=== PATIENT | female | born 1965 | race Caucasian/White ===

== ENCOUNTER 2023-04-14 12:56 | Emergency (ER) | payer OTHER ==
[~2023-04-14] VITALS: Ht 167.6 cm; Wt 74.8 kg
[~2023-04-14 12:56] MED LIST: BUSP5 PO; CLON1 PO; GLIP2.5ER PO; HYDACE5 PO; IBUP800 PO; INSULANPEN; LOVA20 PO; METF500 PO; VENL25 PO
[2023-04-14] MEDS ORDERED: HYDROXYZ HCL 25MG TA (13:27)
[2023-04-14] MEDS ORDERED: BASAGLAR K100 UNIT/8 (13:27)
[2023-04-14] MEDS ORDERED: TRAZ50 PO (13:28)
[2023-04-14] MEDS ORDERED: JARDIANCE25 MG PO (13:29)
[2023-04-14 13:42] LABS: BASOPHILS ABSOLUTE AUTO 0.04 K/mm3 (0.00-0.23); BASOPHILS PERCENT AUTO 1 % (0-2); EOSINOPHILS ABSOLUTE AUTO 0.08 K/mm3 (0.00-0.68); EOSINOPHILS PERCENT AUTO 1 % (0-6); Hematocrit 26.9 % (33.0-51.0); Hemoglobin 8.9 g/dL (11.5-16.0); IMMATURE GRAN ABSOLUTE AUTO 0.02 K/mm3 (0.00-0.10); IMMATURE GRAN PERCENT AUTO 0 % (0-1); LYMPHOCYTES ABSOLUTE AUTO 1.69 K/mm3 (0.84-5.20); LYMPHOCYTES PERCENT AUTO 22 % (21-46); MONOCYTES ABSOLUTE AUTO 0.62 K/mm3 (0.16-1.47); MONOCYTES PERCENT AUTO 8 % (4-13); Mean Corpuscular HGB 29.6 pg (26.0-34.0); Mean Corpuscular HGB Conc 33.1 g/dL (31.5-36.5); Mean Corpuscular Volume 89 fL (80-100); Mean Platelet Volume 10.1 fL (9.1-12.4); NEUTROPHILS ABSOLUTE AUTO 5.41 K/mm3 (1.96-9.15); NEUTROPHILS PERCENT AUTO 69 % (41-73); Platelet Count 137 K/mm3 (150-400); RDW Coefficient Variation 14.6 % (11.7-14.2); RDW Standard Deviation 46.8 fL (35.1-46.3); Red Blood Cell Count 3.01 M/mm3 (3.80-5.20); White Blood Cell Count 7.86 K/mm3 (4.00-11.30)
[2023-04-14 14:07] LABS: Albumin, Blood 1.9 g/dL (3.4-5.0); Albumin/Globulin Ratio 0.5 (0.8-1.8); Bilirubin, Total 0.7 mg/dL (0.1-1.0); Bun/Creatinine Ratio 56.7 (12.0-20.0); Calcium, Blood 7.8 mg/dL (8.5-10.1); Creatinine, Blood 0.55 mg/dL (0.40-1.00); Globulin, Blood 4.2 g/dL (2.2-4.0); Potassium, Blood 3.8 mmol/L (3.5-5.5); Total Protein, Blood 6.1 g/dL (6.4-8.2)
[2023-04-14 15:22] LABS: International Normalized Ratio 1.06; Prothrombin Time Results 11.1 Sec (9.7-11.5)
[2023-04-14 15:32] LABS: Source, Urine Clean Catch
[2023-04-14 15:38] LABS: Appearance, Urine Hazy (Clear); Bilirubin, Urine Neg (Neg); Blood, Urine 5+ (Neg); Color, Urine Yellow (P-Yellow); Glucose Qualitative, Urine 4+ (Neg); Ketones, Urine Neg (Neg); Leukocyte Esterase, Urine 3+ (Neg); Nitrite, Urine Pos (Neg); Protein, Urine 2+ (Neg); Urobilinogen, Urine NORM (Normal); pH, Urine 6.5 (5.0-8.0)
[2023-04-14 15:51] LABS: White Blood Cells, Urine TNTC /hpf (0-5)
[2023-04-14 15:52] LABS: Bacteria Many /hpf; Red Blood Cells, Urine 25-50 /hpf (0-2); Squamous Epithelial Cells Rare /hpf (Few)
[2023-04-14] MEDS ORDERED: EFFEXOR XR150 MG PO (19:07)
[2023-04-14 20:20] VITALS: BP 146/88
== END 2023-04-14 20:00 | disposition short-term general hospital (02) ==
LOC: ER 12:56
PROVIDERS: Emergency Medicine; Student in an Organized Health Care Education/Training Program
DX: K92.2 Gastrointestinal hemorrhage, unspecified (principal); D62 Acute posthemorrhagic anemia; E11.9 Type 2 diabetes mellitus without complications; E78.00 Pure hypercholesterolemia, unspecified
CPT/HCPCS: 74174; 80053; 81001; 82947; 85025; 85610; 86850; 86900; 86901; C9113; J0696; J2354; J2405; J7050; Q9967

== ENCOUNTER 2023-07-12 07:01 | Observation (INO) | payer OTHER ==
[~2023-07-12] VITALS: Ht 175.3 cm; Wt 76.8 kg
[~2023-07-12 07:01] MED LIST changes: +AMLODIPINE BESY10 MG PO; +BASAGLAR K100 UNIT/8; +EFFEXOR XR150 MG PO; +HYDROXYZ HCL 25MG TA; +JARDIANCE25 MG PO; +PROP10 PO; +TRAZ50 PO
[2023-07-12 07:15] LABS: BASOPHILS ABSOLUTE AUTO 0.05 K/mm3 (0.00-0.23); BASOPHILS PERCENT AUTO 1 % (0-2); EOSINOPHILS ABSOLUTE AUTO 0.17 K/mm3 (0.00-0.68); EOSINOPHILS PERCENT AUTO 2 % (0-6); Hematocrit 30.8 % (33.0-51.0); Hemoglobin 10.3 g/dL (11.5-16.0); IMMATURE GRAN ABSOLUTE AUTO 0.02 K/mm3 (0.00-0.10); IMMATURE GRAN PERCENT AUTO 0 % (0-1); LYMPHOCYTES ABSOLUTE AUTO 2.92 K/mm3 (0.84-5.20); LYMPHOCYTES PERCENT AUTO 34 % (21-46); MONOCYTES PERCENT AUTO 8 % (4-13); Mean Corpuscular HGB 27.1 pg (26.0-34.0); Mean Corpuscular HGB Conc 33.4 g/dL (31.5-36.5); Mean Corpuscular Volume 81 fL (80-100); Mean Platelet Volume 10.2 fL (9.1-12.4); NEUTROPHILS ABSOLUTE AUTO 4.62 K/mm3 (1.96-9.15); NEUTROPHILS PERCENT AUTO 55 % (41-73); Platelet Count 197 K/mm3 (150-400); RDW Coefficient Variation 15.9 % (11.7-14.2); RDW Standard Deviation 46.9 fL (35.1-46.3); White Blood Cell Count 8.48 K/mm3 (4.00-11.30)
[2023-07-12 07:18] LABS: Source, Urine Fem Cath
[2023-07-12 07:22] LABS: Appearance, Urine Hazy (Clear); Bilirubin, Urine Neg (Neg); Blood, Urine 2+ (Neg); Color, Urine Yellow (P-Yellow); Glucose Qualitative, Urine Neg (Neg); Ketones, Urine Neg (Neg); Leukocyte Esterase, Urine 2+ (Neg); Nitrite, Urine Neg (Neg); Protein, Urine 1+ (Neg); Specific Gravity, Urine 1.015 (1.003-1.022); Urobilinogen, Urine NORM (Normal)
[2023-07-12 07:33] LABS: Bacteria Many /hpf; Renal Epithelial Rare /hpf (0-Rare); Squamous Epithelial Cells Not Seen /hpf (Few)
[2023-07-12 07:39] LABS: Albumin, Blood 2.8 g/dL (3.4-5.0); Albumin/Globulin Ratio 0.6 (0.8-1.8); Bilirubin, Total 0.5 mg/dL (0.1-1.0); Bun/Creatinine Ratio 34.8 (12.0-20.0); Calcium, Blood 9.1 mg/dL (8.5-10.1); Creatinine, Blood 0.78 mg/dL (0.40-1.00); Globulin, Blood 4.4 g/dL (2.2-4.0); Potassium, Blood 4.3 mmol/L (3.5-5.5); Total Protein, Blood 7.2 g/dL (6.4-8.2)
[2023-07-12] MEDS ORDERED: CEPH500 PO (09:22)
[2023-07-12] MEDS ORDERED: VENL75ER PO (10:06)
[2023-07-12] MEDS ORDERED: CONSTULOSE10 GM/155 PO (10:06)
[2023-07-12] MEDS ORDERED: AMLO10 PO (10:07)
[2023-07-12] MEDS ORDERED: OMEP20ER PO (10:07)
[2023-07-12] MEDS ORDERED: PROP10 PO (10:07)
[2023-07-12] MEDS ORDERED: BASAGLAR K100 UNIT/1 SC (10:08)
[2023-07-12] MEDS ORDERED: HUMALOG100 UNIT/1 SC (10:09)
[2023-07-12] MEDS ORDERED: FURO40 PO (13:45)
[2023-07-12] MEDS ORDERED: ALDACTONE100 M1 PO (13:46)
[2023-07-12] MEDS ORDERED: POTCHL20ER PO (13:46)
[2023-07-12 14:16] VITALS: BP 151/74
[2023-07-12 15:00] VITALS: BP 160/87
--- NOTE | 2023-07-12 15:38 | NUR ---
PATIENT ADMIT TO MEDICAL 345. UP SBA TO BED. ABLE TO TELL ME NAME AND . UNABLE TO TELL ME WHERE SHE IS AND WHY. UNABLE TO GET ANY MEDICAL HISTORY. [facility]IENT FROM [facility]. DENIES NUMBNESS/TINGLING. BILATERAL NEWSPAPER EDITOR MANAGING STRENGTH. BED ALARM IN PLACE. LUNGS SOUNDING CLEAR THROUGHOUT. SATING ABOVE 95% ON ROOM AIR. DENIES SOB/COUGH. NO TELE. BP ELEVATED SBP 150-160'S. HR WNL. DENIES CHEST PAIN/PRESSURE/PALPITATIONS. PPP. NO EDEMA NOTED. DENIES ABDOMINAL PAIN/NAUSEA. DRINKING WATER AT THIS TIME. BOWEL TONES PRESENT. ADA DIET WITH ACHS BLOOD SUGARS. UP SBA TO BATHROOM TO VOID. DENIES ISSUES WITH HAVING BOWEL MOVMENTS. URINE PIERRE IN COLOR, USING HAT TO MEASURE. NEW IV PLACED. ADMIT COMPELTED BY CAPTAIN AIRLINE PILOT. PATIENT IN BED AT THIS TIME WITH BED ALARM IN PLACE.
--- NOTE | 2023-07-12 18:24 | NUR ---
SHIFT SUMMARY: NO ACUTE CHANGES. PATIENT REMAINS CONFUSED BUT ABLE TO REORIENT. SITTING UP IN BED AT THIS TIME EATING DINNER. VITAL SIGNS REMAINS STABLE. ON ROOM AIR. NO TELE. DENIES PAINS. UP TO BATHROOM WITH SBA TO VOID. BED ALARM IN PLACE. CALL LIGHT IN REACH. ACHS BLOOD SUGAR CHECKS. DENIES NEEDS AT THIS TIME.
[2023-07-12 19:43] VITALS: BP 132/71
[2023-07-13 03:16] VITALS: BP 113/73
[2023-07-13 05:12] LABS: BASOPHILS ABSOLUTE AUTO 0.05 K/mm3 (0.00-0.23); BASOPHILS PERCENT AUTO 1 % (0-2); EOSINOPHILS ABSOLUTE AUTO 0.15 K/mm3 (0.00-0.68); EOSINOPHILS PERCENT AUTO 2 % (0-6); Hematocrit 29.1 % (33.0-51.0); Hemoglobin 9.4 g/dL (11.5-16.0); IMMATURE GRAN ABSOLUTE AUTO 0.02 K/mm3 (0.00-0.10); IMMATURE GRAN PERCENT AUTO 0 % (0-1); LYMPHOCYTES ABSOLUTE AUTO 2.55 K/mm3 (0.84-5.20); LYMPHOCYTES PERCENT AUTO 37 % (21-46); MONOCYTES ABSOLUTE AUTO 0.72 K/mm3 (0.16-1.47); MONOCYTES PERCENT AUTO 10 % (4-13); Mean Corpuscular HGB 26.9 pg (26.0-34.0); Mean Corpuscular HGB Conc 32.3 g/dL (31.5-36.5); Mean Corpuscular Volume 83 fL (80-100); Mean Platelet Volume 10.2 fL (9.1-12.4); NEUTROPHILS ABSOLUTE AUTO 3.41 K/mm3 (1.96-9.15); NEUTROPHILS PERCENT AUTO 49 % (41-73); Platelet Count 159 K/mm3 (150-400); RDW Standard Deviation 48.9 fL (35.1-46.3)
--- NOTE | 2023-07-13 05:39 | NUR ---
SHIFT SUMMARY - NO ACUTE CHANGES THROUGHOUT THE NIGHT. PT HAS BEEN COOPERATIVE WITH CARE, RESPONDING TO QUESTIONS ASKED APPROPRIATELY. BED ALARM ON FOR SAFETY THROUGHOUT THE NIGHT. PT DID SET OFF THE ALARM X2, BUT DIDN'T GET OUT OF BED, SHE SAT AT THE BEDSIDE UNTIL STAFF ASSISTED HER TO THE BRP. PT DENIED ANY PAIN OR DISCOMFORT THROUGHOUT THE NIGHT. CALL LIGHT WITHIN REACH. BED IN LOW POSITION. PO FLUIDS AT BEDSIDE. WILL CONTINUE TO MONITOR UNTIL AM SHIFT CHANGE.
[2023-07-13 06:08] LABS: Calcium, Blood 8.7 mg/dL (8.5-10.1); Creatinine, Blood 0.75 mg/dL (0.40-1.00); Potassium, Blood 3.8 mmol/L (3.5-5.5)
[2023-07-13 07:26] VITALS: BP 122/54
[2023-07-13 15:42] VITALS: BP 122/67
--- NOTE | 2023-07-13 18:07 | NUR ---
SHIFT SUMMARY: LA NENA IS A&OX2-3, ABLE TO STATE NAME AND , LOCATION, NAME AND PHONE NUMBER OF FRIEND, THE YEAR, AND CURRENT PRESIDENT. SHE IS TOLERATING PO INTAKE WELL, AMBULATING WITH STANDBY ASSIST ONLY, FORGETS TO USE THE CALL LIGHT. SHE HAS VOICED THE DESIRE TO GO HOME. CALLED AND SPOKE WITH SHELDON (LISTED PT'S CAREGIVER ON THE FACESHEET) WHO STATES THAT SHE HAS BEEN WORKING TO GET PT'S INSULIN REFILLED WITHOUT SUCCESS. SHE REQUESTED THAT THIS RN CALL PT'S PCP (DR. BETTINA DOHERTY) TO REQUEST THEY CONTACT INSURANCE TO ASSIST WITH PT'S MEDICATIONS BEING REFILLED. CONTACTED THE HOSPITALIST WHO STATED HE WOULD GET IN TOUCH WITH PT'S PCP. DISCUSSED WITH PT AND UPDATED HER ON SHELDON'S EFFORTS TO REFILL PT'S INSULIN. PT DENIES ANY DIFFICULTIES URINATING, ATTENDS IN PLACE. PT HAS BEEN AMBULATING TO THE BATHROOM WITHOUT DIFFICULTY. PT WAS ABLE TO VERIFY HER HOME MEDICATIONS AND HAS BEEN UP TO THE CHAIR FOR ALL MEALS. IV TO R AC PATENT. SHE IS SITTING UP IN THE CHAIR WITH THE CALL LIGHT IN REACH. WCTM UNTIL REPORT IS GIVEN TO FLORIST MANAGER RN.
[2023-07-13 19:21] VITALS: BP 147/74
--- NOTE | 2023-07-14 04:09 | NUR ---
SHIFT SUMMARY PATIENT ALERT, PLEASANT, COOPERATIVE, FORGETFUL AT TIMES. DENIES PAIN NOR DISCOMFORT. REQUIRES SBA FOR TRANSFERS. PIV TO RIGHT AC, PATENT, SL. NO ACUTE CHAGNES NOTED OVERNIGHT. BED ALARM ON FOR PATIENT SAFETY. BED LOCKED AND IN LOW POSITION, CALL LIGHT WITHIN REACH.
[2023-07-14 05:27] VITALS: BP 123/59
[2023-07-14 06:08] LABS: BASOPHILS ABSOLUTE AUTO 0.05 K/mm3 (0.00-0.23); BASOPHILS PERCENT AUTO 1 % (0-2); EOSINOPHILS ABSOLUTE AUTO 0.19 K/mm3 (0.00-0.68); EOSINOPHILS PERCENT AUTO 3 % (0-6); Hematocrit 29.3 % (33.0-51.0); Hemoglobin 9.6 g/dL (11.5-16.0); IMMATURE GRAN ABSOLUTE AUTO 0.01 K/mm3 (0.00-0.10); IMMATURE GRAN PERCENT AUTO 0 % (0-1); LYMPHOCYTES ABSOLUTE AUTO 2.86 K/mm3 (0.84-5.20); LYMPHOCYTES PERCENT AUTO 47 % (21-46); MONOCYTES ABSOLUTE AUTO 0.62 K/mm3 (0.16-1.47); MONOCYTES PERCENT AUTO 10 % (4-13); Mean Corpuscular HGB 26.9 pg (26.0-34.0); Mean Corpuscular HGB Conc 32.8 g/dL (31.5-36.5); Mean Corpuscular Volume 82 fL (80-100); Mean Platelet Volume 9.9 fL (9.1-12.4); NEUTROPHILS ABSOLUTE AUTO 2.36 K/mm3 (1.96-9.15); NEUTROPHILS PERCENT AUTO 39 % (41-73); Platelet Count 147 K/mm3 (150-400); Red Blood Cell Count 3.57 M/mm3 (3.80-5.20); White Blood Cell Count 6.09 K/mm3 (4.00-11.30)
[2023-07-14 06:30] LABS: Albumin, Blood 2.6 g/dL (3.4-5.0); Albumin/Globulin Ratio 0.6 (0.8-1.8); Bilirubin, Total 0.4 mg/dL (0.1-1.0); Bun/Creatinine Ratio 21.2 (12.0-20.0); Calcium, Blood 8.7 mg/dL (8.5-10.1); Creatinine, Blood 0.66 mg/dL (0.40-1.00); Globulin, Blood 4.2 g/dL (2.2-4.0); Potassium, Blood 3.7 mmol/L (3.5-5.5); Total Protein, Blood 6.8 g/dL (6.4-8.2)
[2023-07-14 07:14] VITALS: BP 126/70
[2023-07-14] MEDS ORDERED: ACET325 PO (11:47)
[2023-07-14] MEDS ORDERED: CEFP200 PO (11:48)
--- NOTE | 2023-07-14 12:46 | NUR ---
SHIFT/DC SUMMARY Pt remains A&O x3 this shift. Denies pain. Ambulating independently. Tolerating meals. Voiding without difficulty. All discharge instructions reviewed with return verbal understanding. Pt to lobby via transfer chair/volunteer to [facility]. Sena from [facility] unable to transport.
== END 2023-07-14 12:55 | disposition home or self-care (01) ==
LOC: ER 07:01 → MEDS 07:02 → ER 07:02 → MEDS 14:10 → ENPENDDIS 07-14 11:25 → MEDS 07-14 12:55
PROVIDERS: Emergency Medicine; Internal Medicine; ADMIT Family Medicine
DX: K76.82 Hepatic encephalopathy (principal); N39.0 Urinary tract infection, site not specified; E11.9 Type 2 diabetes mellitus without complications; D64.9 Anemia, unspecified; K21.9 Gastro-esophageal reflux disease without esophagitis; E78.5 Hyperlipidemia, unspecified; D69.6 Thrombocytopenia, unspecified; I10 Essential (primary) hypertension; Z79.4 Long term (current) use of insulin; Z79.899 Other long term (current) drug therapy
CPT/HCPCS: 36415; 80048; 80053; 81001; 82140; 82947; 85025; 87077; 87086; 87186; 96361; 96365; 96375; 97116; 97162; 99285-25; A9270; J0696; J1650; J1815; J2405; J7030; J7050; P9612

== ENCOUNTER 2023-07-24 13:42 | Inpatient (IN) | payer OTHER ==
[~2023-07-24] VITALS: Ht 172.7 cm; Wt 67.2 kg
[~2023-07-24 13:42] MED LIST changes: +ACET325 PO; +ALDACTONE100 M1 PO; +AMLO10 PO; +BASAGLAR K100 UNIT/1 SC; +CEFP200 PO; +CEPH500 PO; +CONSTULOSE10 GM/155 PO; +FURO40 PO; +HUMALOG100 UNIT/1 SC; +OMEP20ER PO; +POTCHL20ER PO; +VENL75ER PO
[2023-07-24 15:18] LABS: Albumin/Globulin Ratio 0.7 (0.8-1.8); Bilirubin, Total 0.6 mg/dL (0.1-1.0); Bun/Creatinine Ratio 33.8 (12.0-20.0); Calcium, Blood 8.9 mg/dL (8.5-10.1); Creatinine, Blood 0.74 mg/dL (0.40-1.00); Globulin, Blood 4.2 g/dL (2.2-4.0); Potassium, Blood 4.4 mmol/L (3.5-5.5); Total Protein, Blood 7.2 g/dL (6.4-8.2)
[2023-07-24 15:53] LABS: BASOPHILS ABSOLUTE AUTO 0.07 K/mm3 (0.00-0.23); BASOPHILS PERCENT AUTO 1 % (0-2); EOSINOPHILS PERCENT AUTO 4 % (0-6); Hematocrit 33.7 % (33.0-51.0); Hemoglobin 10.9 g/dL (11.5-16.0); IMMATURE GRAN ABSOLUTE AUTO 0.11 K/mm3 (0.00-0.10); IMMATURE GRAN PERCENT AUTO 1 % (0-1); LYMPHOCYTES ABSOLUTE AUTO 2.77 K/mm3 (0.84-5.20); LYMPHOCYTES PERCENT AUTO 32 % (21-46); MONOCYTES ABSOLUTE AUTO 0.78 K/mm3 (0.16-1.47); MONOCYTES PERCENT AUTO 9 % (4-13); Mean Corpuscular HGB 26.4 pg (26.0-34.0); Mean Corpuscular HGB Conc 32.3 g/dL (31.5-36.5); Mean Corpuscular Volume 82 fL (80-100); Mean Platelet Volume 10.7 fL (9.1-12.4); NEUTROPHILS ABSOLUTE AUTO 4.64 K/mm3 (1.96-9.15); NEUTROPHILS PERCENT AUTO 54 % (41-73); NRBC ABSOLUTE 0.02 K/mm3 (0.00-0.02); NRBC Auto 0.2 /100 WBC (0.0-0.2); Platelet Count 177 K/mm3 (150-400); RDW Coefficient Variation 15.9 % (11.7-14.2); RDW Standard Deviation 47.5 fL (35.1-46.3); Red Blood Cell Count 4.13 M/mm3 (3.80-5.20); White Blood Cell Count 8.67 K/mm3 (4.00-11.30)
[2023-07-24 17:17] LABS: Source, Urine Straight Cath
[2023-07-24 17:31] LABS: Bilirubin, Urine Neg (Neg); Blood, Urine Neg (Neg); Color, Urine Yellow (P-Yellow); Glucose Qualitative, Urine Neg (Neg); Ketones, Urine Neg (Neg); Leukocyte Esterase, Urine 3+ (Neg); Nitrite, Urine Neg (Neg); Protein, Urine Neg (Neg); Urobilinogen, Urine NORM (Normal)
[2023-07-24 17:39] LABS: Appearance, Urine Hazy (Clear); Squamous Epithelial Cells Few /hpf (Few)
[2023-07-24 17:40] LABS: Bacteria Few /hpf; Transitional Epithelial Cells Few /hpf (0-Rare)
[2023-07-24 20:53] VITALS: BP 156/75
[2023-07-25 03:28] VITALS: BP 145/74
--- NOTE | 2023-07-25 05:19 | NUR ---
SHIFT SUMMARY/ADMISSION NOTE PATIENT ARRIVED TO UNIT FROM ED AT 20:50. A/O MOSTLY TO SELF. RESPONDS TO MOST QUESTIONS WITH, "YEAH." COOPERATIVE, REDIRECTABLE. UNABLE TO RECALL ANY Hx. BELIEVES SHE IS AT HOME IN [place]. UNSTEADY ON FEET, MILD GAIT ATAXIA, ABLE TO STAND PIVOT TO BSC. VOIDED 900mL, CLEAR YELLOW URINE. SLEPT WELL TILL ABOUT 04:30. MORE ALERT, WATCHING TV IN BED IN NO ACUTE DISTRESS. REQUIRES 1 ASSIST FOR MOST CARES AND TRANSFERS TO BSC. BED ALARM ON FOR PATIENT SAFETY. BED LOCKED, IN LOW POSITION, CALL LIGHT WITHIN REACH.
[2023-07-25 06:23] LABS: Calcium, Blood 8.5 mg/dL (8.5-10.1); Creatinine, Blood 0.66 mg/dL (0.40-1.00); Potassium, Blood 3.8 mmol/L (3.5-5.5)
[2023-07-25 07:20] VITALS: BP 126/61
--- NOTE | 2023-07-25 09:00 | NUR ---
PT PLEASANT COOP A/O X3 , ABLE TO TELL ME CURRENT DATE, HER , AGE, PRESIDENT. CITY, HOSP. HER HOME ADD IN RSBG. XHUSB NAME. DENIES PAIN AT THIS TIME. H/R IRREG, NO MUIRMUR NOTED. NO EDEMA NOTED. NO TELE. LUNGS CLEAR, RESP EASK UNLABORED. ON R/A. STATES LAST BM THIS AM. VOIDS INDEPENDANT TO BATHROOM/ BED IN LOW POSITION, CALL LITE IN REACH, CALLS APPROP OR AMBULATES TO DOOR FOR NEEDS.
[2023-07-25 12:35] VITALS: BP 123/75
--- NOTE | 2023-07-25 14:54 | NUR ---
PT JUST CAME TO DOOR POST SHOWER. STANDING IN HALLWAY DOOR WITH ONLY A SHOWER TOWEL WRAPPED MIDWAY ABOUT HER TRUNK. USHERED HER BACK TO BED AREA. BROUGHT HER SOME BLUE PAPER CLOTHES. PLACED NON SKID SOCKS ON PT. REPLACED IV DRESSING. PT STATES JUST WANTED A SHOWER, SO JUST JUMPTED IN. INDEPENDANT IN ROOM. BED IN LOW POSITION, CALL LITE IN REACH, CALLS APPROP OR WALKS TO DOOR FOR ASSISTANCE.
--- NOTE | 2023-07-25 15:04 | NUR ---
UPDATED DR ON RECENT EVENTS WHEN IN MUN[facility]
[2023-07-25 15:37] VITALS: BP 131/66
--- NOTE | 2023-07-25 18:00 | NUR ---
PT PLEASANT TODAY, HAS BEEN NAPPING THIS AFTERNOON. NOW SITTING ON EDGE OF BED EATING. NO C/O PAIN TODAY. FRIEND IN TO VISIT TODAY. PT DID TAKE SHOWER TODAY. IMPULSIVE. A/O TO FACTS WELL, GABBY, SHE CAME TO DINERO DOOR NAKED MINUS TOWEL WRAPPED ABOUT WAIST. ESCORTED BACK TO BED, GOT PAPER PANTS/SHIRT TO KEEP MORE LIKELY COVERED. DISCUSSED WITH IN HALLWAY THIS AFT. NO OTHER CONCERNS NOTED. BED IN LOW POSITION, CALL LITE IN REACH, WALKS TO DOOR FOR NEEDS
[2023-07-25 19:18] VITALS: BP 140/68
--- NOTE | 2023-07-26 04:48 | NUR ---
SHIFT SUMMARY; NO ACUTE CHANGES OVERNIGHT. THE PT IS AXO X2-3, CONFUSED AT TIMES. THE PT IS INDEPENDENT IN THE ROOM. THE PT HAS BEEN SLEEPING FOR THE MAJORITY OF THE SHIFT. THE PT DENIES ANY SOB, CHEST PAIN/PRESSURE, N/V OR PAIN. CURRENTLY THE PT IS SITTING IN BED COLORING WITH THE BED IN THE LOWEST POSITION AND THE CALL LIGHT AT BEDSIDE. FIRE SAFETY MAINTAINED T/O THE NIGHT.
[2023-07-26 05:08] VITALS: BP 114/74
[2023-07-26 07:26] VITALS: BP 129/64
[2023-07-26 07:46] LABS: BASOPHILS ABSOLUTE AUTO 0.07 K/mm3 (0.00-0.23); BASOPHILS PERCENT AUTO 1 % (0-2); EOSINOPHILS PERCENT AUTO 4 % (0-6); Hematocrit 30.6 % (33.0-51.0); Hemoglobin 9.8 g/dL (11.5-16.0); IMMATURE GRAN ABSOLUTE AUTO 0.01 K/mm3 (0.00-0.10); IMMATURE GRAN PERCENT AUTO 0 % (0-1); LYMPHOCYTES ABSOLUTE AUTO 2.72 K/mm3 (0.84-5.20); LYMPHOCYTES PERCENT AUTO 40 % (21-46); MONOCYTES ABSOLUTE AUTO 0.75 K/mm3 (0.16-1.47); MONOCYTES PERCENT AUTO 11 % (4-13); Mean Corpuscular HGB 26.3 pg (26.0-34.0); Mean Corpuscular Volume 82 fL (80-100); Mean Platelet Volume 10.2 fL (9.1-12.4); NEUTROPHILS ABSOLUTE AUTO 2.96 K/mm3 (1.96-9.15); NEUTROPHILS PERCENT AUTO 44 % (41-73); Platelet Count 169 K/mm3 (150-400); RDW Coefficient Variation 15.8 % (11.7-14.2); RDW Standard Deviation 47.2 fL (35.1-46.3); Red Blood Cell Count 3.73 M/mm3 (3.80-5.20); White Blood Cell Count 6.81 K/mm3 (4.00-11.30)
[2023-07-26 08:07] LABS: Albumin, Blood 2.7 g/dL (3.4-5.0); Albumin/Globulin Ratio 0.7 (0.8-1.8); Bilirubin, Total 0.5 mg/dL (0.1-1.0); Bun/Creatinine Ratio 19.7 (12.0-20.0); Calcium, Blood 8.7 mg/dL (8.5-10.1); Creatinine, Blood 0.76 mg/dL (0.40-1.00); Globulin, Blood 4.1 g/dL (2.2-4.0); Potassium, Blood 4.2 mmol/L (3.5-5.5); Total Protein, Blood 6.8 g/dL (6.4-8.2)
--- NOTE | 2023-07-26 09:22 | NUR ---
bp 129/64, p 58. per dr joshi only hold inderal, give all other bp meds.
[2023-07-26 12:18] VITALS: BP 112/71
[2023-07-26 14:38] VITALS: BP 124/73
--- NOTE | 2023-07-26 17:35 | NUR ---
PT MOSTLY APPROP TODAY, AMBULATING ABOUT ROOM. STATES ONLY 1 BM TODAY. ALL DAY. 3 DOSES OF LACTULOSE ADMIN SO FAR. GAVE ABX TODAY. NO NEW CONCERNS NOTED. BED IN LOW POSITION, CALL LITE IN REACH, CALLS APPROP OR WALKS TO DOOR FOR ASSISTANCE.
[2023-07-26 19:45] VITALS: BP 121/74
[2023-07-27 02:37] VITALS: BP 120/57
--- NOTE | 2023-07-27 04:33 | NUR ---
SHIFT SUMMARY; NO ACUTE CHANGES OVERNIGHT. THE PT HAS BEEN AXO X3 THIS EVENING W/ OCCASSIONAL FORGETFULLNESS. THE PT WAS AGGREVIATED LAST NIGHT WITH THE FACT THAT SHE IS STILL TAKING LACTULOSE, WELL OTHER MEDICATIONS. THE PT DOES NOT ENTIRELY UNDERSTAND HER TREATMENT PLAN AND OR THE REASON FOR THIS HOSPITALIZATION. THE PT HAS OTHERWISE HAD AN UNEVENTFUL NIGHT. THE PT DENIES ANY PAIN, SOB, CHEST PAIN/PRESSURE OR N/V. CURRENTLY THE PT IS SLEEPING IN BED WITH THE BED IN THE LOWEST POSITION AND THE CALL LIGHT AT BEDSIDE. FIRE SAFETY MAINTAINED T/O THE SHIFT.
[2023-07-27 06:28] LABS: BASOPHILS ABSOLUTE AUTO 0.06 K/mm3 (0.00-0.23); BASOPHILS PERCENT AUTO 1 % (0-2); EOSINOPHILS ABSOLUTE AUTO 0.34 K/mm3 (0.00-0.68); EOSINOPHILS PERCENT AUTO 5 % (0-6); Hemoglobin 9.7 g/dL (11.5-16.0); IMMATURE GRAN ABSOLUTE AUTO 0.01 K/mm3 (0.00-0.10); IMMATURE GRAN PERCENT AUTO 0 % (0-1); LYMPHOCYTES ABSOLUTE AUTO 3.01 K/mm3 (0.84-5.20); LYMPHOCYTES PERCENT AUTO 40 % (21-46); MONOCYTES PERCENT AUTO 12 % (4-13); Mean Corpuscular HGB 26.4 pg (26.0-34.0); Mean Corpuscular HGB Conc 32.3 g/dL (31.5-36.5); Mean Corpuscular Volume 82 fL (80-100); Mean Platelet Volume 10.5 fL (9.1-12.4); NEUTROPHILS ABSOLUTE AUTO 3.28 K/mm3 (1.96-9.15); NEUTROPHILS PERCENT AUTO 43 % (41-73); Platelet Count 175 K/mm3 (150-400); RDW Coefficient Variation 15.7 % (11.7-14.2); RDW Standard Deviation 46.9 fL (35.1-46.3); Red Blood Cell Count 3.68 M/mm3 (3.80-5.20)
[2023-07-27 07:01] LABS: Albumin, Blood 2.6 g/dL (3.4-5.0); Albumin/Globulin Ratio 0.7 (0.8-1.8); Bilirubin, Total 0.4 mg/dL (0.1-1.0); Bun/Creatinine Ratio 19.2 (12.0-20.0); Calcium, Blood 8.5 mg/dL (8.5-10.1); Creatinine, Blood 0.83 mg/dL (0.40-1.00); Globulin, Blood 3.9 g/dL (2.2-4.0); Potassium, Blood 4.1 mmol/L (3.5-5.5); Total Protein, Blood 6.5 g/dL (6.4-8.2)
[2023-07-27 07:49] VITALS: BP 118/63
[2023-07-27 11:13] VITALS: BP 137/67
[2023-07-27 15:02] VITALS: BP 131/71
--- NOTE | 2023-07-27 16:23 | NUR ---
SHIFT SUMMARY MS COOLEY IS ORIENTATED TO HER NAME, TO DATE AND LOCATION. SHE SAID SHE'S NOT REALLY SURE WHY SHE'S HERE. SHE HAS CONFUSION THROUGHOUT THE DAY, HAVING SOME DIFFICULTY USING THE TELEPHONE AND SOME CONFUSED RESPONSES TO QUESTIONS. SHE HAS TOLERTED THE LACTULOSE AND REPORTS 3 BMS TODAY. UP INDEPENDENTLY TO THE BATHROOM. BED LOW, CALL LIGHT IN REACH.
[2023-07-27 20:08] VITALS: BP 127/60
[2023-07-28 06:16] LABS: BASOPHILS ABSOLUTE AUTO 0.08 K/mm3 (0.00-0.23); BASOPHILS PERCENT AUTO 1 % (0-2); EOSINOPHILS ABSOLUTE AUTO 0.47 K/mm3 (0.00-0.68); EOSINOPHILS PERCENT AUTO 6 % (0-6); Hematocrit 29.8 % (33.0-51.0); Hemoglobin 9.7 g/dL (11.5-16.0); IMMATURE GRAN ABSOLUTE AUTO 0.02 K/mm3 (0.00-0.10); IMMATURE GRAN PERCENT AUTO 0 % (0-1); LYMPHOCYTES ABSOLUTE AUTO 2.75 K/mm3 (0.84-5.20); LYMPHOCYTES PERCENT AUTO 36 % (21-46); MONOCYTES ABSOLUTE AUTO 0.86 K/mm3 (0.16-1.47); MONOCYTES PERCENT AUTO 11 % (4-13); Mean Corpuscular HGB 26.5 pg (26.0-34.0); Mean Corpuscular HGB Conc 32.6 g/dL (31.5-36.5); Mean Corpuscular Volume 81 fL (80-100); Mean Platelet Volume 10.4 fL (9.1-12.4); NEUTROPHILS ABSOLUTE AUTO 3.49 K/mm3 (1.96-9.15); NEUTROPHILS PERCENT AUTO 46 % (41-73); Platelet Count 169 K/mm3 (150-400); RDW Coefficient Variation 15.7 % (11.7-14.2); RDW Standard Deviation 46.4 fL (35.1-46.3); Red Blood Cell Count 3.66 M/mm3 (3.80-5.20); White Blood Cell Count 7.67 K/mm3 (4.00-11.30)
[2023-07-28 06:36] LABS: Bun/Creatinine Ratio 22.3 (12.0-20.0); Calcium, Blood 8.5 mg/dL (8.5-10.1); Creatinine, Blood 0.81 mg/dL (0.40-1.00); Potassium, Blood 4.2 mmol/L (3.5-5.5)
--- NOTE | 2023-07-28 06:41 | NUR ---
PT EDUCATED ON [facility] FIRE SAFETY EXPLOSIVES/NON SMOKING SAFETY POLICY AND VERBALIZED UNDERSTANDING.
--- NOTE | 2023-07-28 06:47 | NUR ---
PT A/O X 4. PLEASANT AND COOPERATIVE WITH CARE. PT IV ACCESS IN R HAND FELL OUT AND NEW ACCESS PLACED IN LFA. PT TAKING LACTULOSE 3 DOSES QID. NO ACUTE CHANGES TO REPORT. PT IS CURRENTLY RESTING WITH BED IN LOWEST POSITION, AND CALL LIGHT WITHIN REACH.
[2023-07-28 07:25] VITALS: BP 94/65
[2023-07-28 09:41] VITALS: BP 124/74
[2023-07-28 11:57] VITALS: BP 122/54
--- NOTE | 2023-07-28 14:40 | NUR ---
DISCHARGE SUMMARY PT DISCHARGED TO [facility]. BIOMEDICAL ELECTRONICS TECHNICIAN DU IN CONTACT WITH LAMAR OTERO, ARRESTING GEAR OPERATOR OF RESIDENTIAL. PT EDUCATED ON ALL DISCHARGE INFORMATION, ALL QUESTIONS ANSWERED. PT LEFT ROOM PRIOR TO THIS NOTE VIA WHEELCHAIR WITH THIS NURSE ESCORT TO [facility]. IV DC'D AND BELONGINGS RETURNED.
== END 2023-07-28 14:19 | disposition home or self-care (01) | DRG 441 ==
LOC: ER 13:42 → MEDS 19:29 → ENPENDDIS 07-28 14:01 → MEDS 07-28 14:19
PROVIDERS: Emergency Medicine; Internal Medicine; ADMIT Hospitalist
DX: K76.82 Hepatic encephalopathy (principal); G93.41 Metabolic encephalopathy; N39.0 Urinary tract infection, site not specified; E78.00 Pure hypercholesterolemia, unspecified; K74.60 Unspecified cirrhosis of liver; F03.90 Unspecified dementia, unspecified severity, without behavioral disturbance, psychotic disturbance, mood disturbance, and anxiety; F31.9 Bipolar disorder, unspecified; D64.9 Anemia, unspecified; K21.9 Gastro-esophageal reflux disease without esophagitis; K76.0 Fatty (change of) liver, not elsewhere classified; E11.65 Type 2 diabetes mellitus with hyperglycemia; D69.6 Thrombocytopenia, unspecified; R16.1 Splenomegaly, not elsewhere classified; E83.119 Hemochromatosis, unspecified; Z98.890 Other specified postprocedural states; Z79.899 Other long term (current) drug therapy; Z79.4 Long term (current) use of insulin; Z89.412 Acquired absence of left great toe
CPT/HCPCS: 36415; 80048; 80053; 81001; 82140; 82947; 83036; 85025; 87077; 87086; 87186; 96374; 99285-25; A9270; J0696; J1815; J3411; J7030; J7050

== ENCOUNTER 2023-07-30 12:49 | Emergency (ER) | payer OTHER ==
[~2023-07-30] VITALS: Ht 294.6 cm; Wt 82.5 kg
[2023-07-30 13:34] LABS: Source, Urine Voided
[2023-07-30 13:39] LABS: BASOPHILS ABSOLUTE AUTO 0.07 K/mm3 (0.00-0.23); BASOPHILS PERCENT AUTO 1 % (0-2); EOSINOPHILS ABSOLUTE AUTO 0.33 K/mm3 (0.00-0.68); EOSINOPHILS PERCENT AUTO 3 % (0-6); Hematocrit 32.7 % (33.0-51.0); Hemoglobin 10.6 g/dL (11.5-16.0); IMMATURE GRAN ABSOLUTE AUTO 0.02 K/mm3 (0.00-0.10); IMMATURE GRAN PERCENT AUTO 0 % (0-1); LYMPHOCYTES ABSOLUTE AUTO 3.13 K/mm3 (0.84-5.20); LYMPHOCYTES PERCENT AUTO 30 % (21-46); MONOCYTES PERCENT AUTO 7 % (4-13); Mean Corpuscular HGB 26.4 pg (26.0-34.0); Mean Corpuscular HGB Conc 32.4 g/dL (31.5-36.5); Mean Corpuscular Volume 82 fL (80-100); Mean Platelet Volume 10.4 fL (9.1-12.4); NEUTROPHILS ABSOLUTE AUTO 6.04 K/mm3 (1.96-9.15); NEUTROPHILS PERCENT AUTO 59 % (41-73); Platelet Count 208 K/mm3 (150-400); RDW Coefficient Variation 15.9 % (11.7-14.2); RDW Standard Deviation 47.1 fL (35.1-46.3); Red Blood Cell Count 4.01 M/mm3 (3.80-5.20); White Blood Cell Count 10.29 K/mm3 (4.00-11.30)
[2023-07-30 13:42] LABS: Appearance, Urine Cloudy (Clear); Bilirubin, Urine Neg (Neg); Blood, Urine 2+ (Neg); Glucose Qualitative, Urine Neg (Neg); Ketones, Urine Neg (Neg); Leukocyte Esterase, Urine 3+ (Neg); Nitrite, Urine Neg (Neg); Protein, Urine 2+ (Neg); Urobilinogen, Urine NORM (Normal)
[2023-07-30 13:44] LABS: Color, Urine Pale Yellow (P-Yellow)
[2023-07-30 13:51] LABS: Albumin/Globulin Ratio 0.7 (0.8-1.8); Bilirubin, Total 0.5 mg/dL (0.1-1.0); Bun/Creatinine Ratio 21.9 (12.0-20.0); Calcium, Blood 9.4 mg/dL (8.5-10.1); Creatinine, Blood 1.05 mg/dL (0.40-1.00); Globulin, Blood 4.5 g/dL (2.2-4.0); Potassium, Blood 4.6 mmol/L (3.5-5.5); Total Protein, Blood 7.5 g/dL (6.4-8.2)
[2023-07-30 13:56] LABS: White Blood Cells, Urine 50-100 /hpf (0-5)
[2023-07-30 13:57] LABS: Bacteria Many /hpf; Squamous Epithelial Cells Few /hpf (Few); Transitional Epithelial Cells Few /hpf (0-Rare)
[2023-07-30 16:00] VITALS: BP 135/81
== END 2023-07-30 21:25 | disposition home or self-care (01) ==
LOC: ER 12:49
PROVIDERS: Emergency Medicine
DX: R41.82 Altered mental status, unspecified (principal); F03.90 Unspecified dementia, unspecified severity, without behavioral disturbance, psychotic disturbance, mood disturbance, and anxiety; R26.81 Unsteadiness on feet; K76.9 Liver disease, unspecified; Z79.4 Long term (current) use of insulin; Z79.899 Other long term (current) drug therapy; E11.9 Type 2 diabetes mellitus without complications
CPT/HCPCS: 70450; 80053; 81001; 82140; 85025; 87077; 87086; 87186; 93005; 93010; 99285-25

== ENCOUNTER 2023-09-10 15:22 | Emergency (ER) | payer OTHER ==
[~2023-09-10] VITALS: Ht 177.8 cm; Wt 83.9 kg
[~2023-09-10 15:22] MED LIST changes: -BASAGLAR K100 UNIT/1 SC; -CONSTULOSE10 GM/155 PO; +INSULIN GL100 UNIT/2 SC; +JARDIANCE10 MG PO; +LACT10SY PO; +LACTULOSE; +ONDA4ODT MM
[2023-09-10] MEDS ORDERED: BASAGLAR K100 UNIT/1 SC (15:51)
[2023-09-10] MEDS ORDERED: NOVOLOG FL100 UNIT/3 SC (15:53)
[2023-09-10 15:59] LABS: BASOPHILS ABSOLUTE AUTO 0.04 K/mm3 (0.00-0.23); BASOPHILS PERCENT AUTO 0 % (0-2); EOSINOPHILS PERCENT AUTO 1 % (0-6); Hematocrit 44.1 % (33.0-51.0); Hemoglobin 14.8 g/dL (11.5-16.0); IMMATURE GRAN ABSOLUTE AUTO 0.03 K/mm3 (0.00-0.10); IMMATURE GRAN PERCENT AUTO 0 % (0-1); LYMPHOCYTES ABSOLUTE AUTO 3.77 K/mm3 (0.84-5.20); LYMPHOCYTES PERCENT AUTO 28 % (21-46); MONOCYTES PERCENT AUTO 9 % (4-13); Mean Corpuscular HGB 28.1 pg (26.0-34.0); Mean Corpuscular HGB Conc 33.6 g/dL (31.5-36.5); Mean Corpuscular Volume 84 fL (80-100); Mean Platelet Volume 10.4 fL (9.1-12.4); NEUTROPHILS ABSOLUTE AUTO 8.31 K/mm3 (1.96-9.15); NEUTROPHILS PERCENT AUTO 62 % (41-73); Platelet Count 267 K/mm3 (150-400); RDW Coefficient Variation 16.6 % (11.7-14.2); RDW Standard Deviation 50.5 fL (35.1-46.3); Red Blood Cell Count 5.27 M/mm3 (3.80-5.20); White Blood Cell Count 13.45 K/mm3 (4.00-11.30)
[2023-09-10] MEDS ORDERED: ONDA4 PO (15:59)
[2023-09-10 16:22] LABS: Albumin/Globulin Ratio 0.6 (0.8-1.8); Bilirubin, Total 1.6 mg/dL (0.1-1.0); Bun/Creatinine Ratio 17.9 (12.0-20.0); Calcium, Blood 9.8 mg/dL (8.5-10.1); Creatinine, Blood 2.01 mg/dL (0.40-1.00); Globulin, Blood 4.8 g/dL (2.2-4.0); Potassium, Blood 5.4 mmol/L (3.5-5.5); Total Protein, Blood 7.8 g/dL (6.4-8.2)
[2023-09-10 16:29] LABS: Source, Urine Straight Cath
[2023-09-10 16:39] LABS: Appearance, Urine Clear (Clear); Bilirubin, Urine Neg (Neg); Blood, Urine Neg (Neg); Color, Urine Yellow (P-Yellow); Glucose Qualitative, Urine Neg (Neg); Ketones, Urine 1+ (Neg); Leukocyte Esterase, Urine Neg (Neg); Nitrite, Urine Neg (Neg); Protein, Urine Neg (Neg); Specific Gravity, Urine 1.025 (1.003-1.022); Urobilinogen, Urine NORM (Normal)
[2023-09-10 16:41] LABS: International Normalized Ratio 1.4; Prothrombin Time Results 14.4 Sec (9.7-11.5)
[2023-09-10 22:02] VITALS: BP 100/55
== END 2023-09-10 22:04 | disposition home or self-care (01) ==
LOC: ER 15:22
PROVIDERS: Emergency Medicine
DX: N17.9 Acute kidney failure, unspecified (principal); E86.0 Dehydration; E11.9 Type 2 diabetes mellitus without complications
CPT/HCPCS: 51701; 70450; 71045; 80053; 81003; 82140; 85025; 85610; 93005; 93010; 99285-25; J7030

== ENCOUNTER 2023-09-13 14:28 | Emergency (ER) | payer OTHER ==
[~2023-09-13] VITALS: Ht 175.3 cm; Wt 72.6 kg
[~2023-09-13 14:28] MED LIST changes: +BASAGLAR K100 UNIT/1 SC; +NOVOLOG FL100 UNIT/3 SC; +ONDA4 PO
[2023-09-13 15:28] LABS: BASOPHILS ABSOLUTE AUTO 0.03 K/mm3 (0.00-0.23); BASOPHILS PERCENT AUTO 0 % (0-2); EOSINOPHILS ABSOLUTE AUTO 0.01 K/mm3 (0.00-0.68); EOSINOPHILS PERCENT AUTO 0 % (0-6); Hemoglobin 14.6 g/dL (11.5-16.0); IMMATURE GRAN ABSOLUTE AUTO 0.04 K/mm3 (0.00-0.10); IMMATURE GRAN PERCENT AUTO 0 % (0-1); LYMPHOCYTES ABSOLUTE AUTO 2.68 K/mm3 (0.84-5.20); LYMPHOCYTES PERCENT AUTO 19 % (21-46); MONOCYTES ABSOLUTE AUTO 1.34 K/mm3 (0.16-1.47); MONOCYTES PERCENT AUTO 9 % (4-13); Mean Corpuscular HGB 28.2 pg (26.0-34.0); Mean Corpuscular HGB Conc 33.2 g/dL (31.5-36.5); Mean Corpuscular Volume 85 fL (80-100); Mean Platelet Volume 10.8 fL (9.1-12.4); NEUTROPHILS ABSOLUTE AUTO 10.08 K/mm3 (1.96-9.15); NEUTROPHILS PERCENT AUTO 71 % (41-73); Platelet Count 242 K/mm3 (150-400); RDW Coefficient Variation 17.3 % (11.7-14.2); Red Blood Cell Count 5.17 M/mm3 (3.80-5.20); White Blood Cell Count 14.18 K/mm3 (4.00-11.30)
[2023-09-13 15:42] LABS: Albumin, Blood 2.7 g/dL (3.4-5.0); Albumin/Globulin Ratio 0.6 (0.8-1.8); Bilirubin, Total 2.4 mg/dL (0.1-1.0); Calcium, Blood 8.9 mg/dL (8.5-10.1); Creatinine, Blood 1.78 mg/dL (0.40-1.00); Globulin, Blood 4.4 g/dL (2.2-4.0); Potassium, Blood 4.9 mmol/L (3.5-5.5); Total Protein, Blood 7.1 g/dL (6.4-8.2)
[2023-09-13] MEDS ORDERED: MORPHINE S PO (17:56)
[2023-09-13 18:30] VITALS: BP 129/104
== END 2023-09-13 18:45 | disposition home or self-care (01) ==
LOC: ER 14:28
PROVIDERS: Student in an Organized Health Care Education/Training Program
DX: G93.40 Encephalopathy, unspecified (principal); F03.90 Unspecified dementia, unspecified severity, without behavioral disturbance, psychotic disturbance, mood disturbance, and anxiety; K74.60 Unspecified cirrhosis of liver; E11.9 Type 2 diabetes mellitus without complications; Z79.4 Long term (current) use of insulin; Z79.899 Other long term (current) drug therapy
CPT/HCPCS: 80053; 82947; 85025; 93005; 93010; 99285-25